=== PATIENT | female | born 1995 | race Caucasian/White ===

== ENCOUNTER 2018-02-04 11:17 | Emergency (ER) | payer OTHER ==
[~2018-02-04] VITALS: Ht 160 cm; Wt 111.4 kg
[2018-02-04 11:17] VITALS: BP 138/87
[2018-02-04] MEDS ORDERED: KETOROLAC TROMETHAMINE 10 MG TAB PO ONE (11:45)
--- NOTE | 2018-02-04 11:46 | REP ---
Clinical: Left ankle trauma . Technique: AP, lateral, bilateral oblique views. Findings: No acute fracture or dislocation. Skeletal structures and joint spaces are intact and normal. Ankle mortise appears stable. No subcutaneous emphysema or radiodense foreign body. Impression: Normal left ankle radiograph series. Electronically Signed by Benjamín Collazo MD 02/04/2018 11:38 A
[2018-02-04] MEDS ORDERED: NAPR-50 PO (12:06)
== END 2018-02-04 12:19 | disposition home or self-care (01) ==
LOC: M ED 11:17
DX: S93.402A Sprain of unspecified ligament of left ankle, initial encounter (principal); X50.9XXA Other and unspecified overexertion or strenuous movements or postures, initial encounter; Y92.018 Other place in single-family (private) house as the place of occurrence of the external cause; E66.8 Other obesity

== ENCOUNTER 2018-02-21 07:38 | Emergency (ER) | payer OTHER ==
[~2018-02-21 07:38] MED LIST: NAPR-50 PO
[2018-02-21 07:39] VITALS: BP 132/81
== END 2018-02-21 08:59 | disposition home or self-care (01) ==
LOC: M ED 07:38
DX: Z32.01 Encounter for pregnancy test, result positive (principal); O23.40 Unspecified infection of urinary tract in pregnancy, unspecified trimester; O99.340 Other mental disorders complicating pregnancy, unspecified trimester; O99.210 Obesity complicating pregnancy, unspecified trimester; O99.320 Drug use complicating pregnancy, unspecified trimester; Z79.899 Other long term (current) drug therapy; Z91.010 Allergy to peanuts; Z91.018 Allergy to other foods; Z3A.00 Weeks of gestation of pregnancy not specified

== ENCOUNTER 2018-02-28 17:23 | Emergency (ER) | payer OTHER ==
[~2018-02-28] VITALS: Ht 160 cm; Wt 109.1 kg
[2018-02-28] MEDS ORDERED: AMOX500C (17:30)
[2018-02-28] MEDS ORDERED: PRENTAB29 (17:30)
[2018-02-28 18:13] LABS: BASO % 0.2 % (0.0-1.0); EOS # 0.1 10^3/uL (0.0-0.50); EOS % 1.1 % (0.0-3.0); HEMATOCRIT 33.9 % (36.0-47.0); HEMOGLOBIN 10.6 g/dl (12.0-15.5); LYMPH # 2.2 10^3/uL (1.5-6.5); LYMPH % 21.5 % (24.0-44.0); MEAN CORPUSCULAR HGB CONC 31.3 g/dl (32.0-36.5); MEAN CORPUSCULAR VOLUME 70.3 fl (80.0-96.0); MONO # 0.6 10^3/uL (0.0-0.8); MONO % 6.2 % (0.0-5.0); NEUTROPHILS # 7.3 10^3/uL (1.8-7.7); NEUTROPHILS % 70.5 % (36.0-66.0); PLATELET COUNT, AUTOMATED 327 10^3/uL (150-450); RED BLOOD COUNT 4.82 10^6/uL (4.00-5.40); WHITE BLOOD COUNT 10.4 10^3/uL (4.0-10.0)
[2018-02-28 18:55] LABS: BLOOD UREA NITROGEN 11 MG/DL (7-18); CALCIUM LEVEL 8.5 MG/DL (8.5-10.1); CARBON DIOXIDE LEVEL 25 MEQ/L (21-32); CHLORIDE LEVEL 107 MEQ/L (98-107); GLUCOSE, FASTING 111 MG/DL (70-100); HCG, SERUM QUANTITATIVE 16468 MIU/ML; POTASSIUM SERUM 3.8 MEQ/L (3.5-5.1); SODIUM LEVEL 140 MEQ/L (136-145)
--- NOTE | 2018-02-28 21:50 | REPVR ---
EXAM: US First Trimester, Transabdominal EXAM DATE/TIME: 02/28/2018 8:55 PM CLINICAL HISTORY: 22 years old, female; Pain; complicated by abdominal or pelvic pain; Right lower quadrant; First trimester; Gestational age or lmp: 6w 2d; TECHNIQUE: Real-time transabdominal obstetrical ultrasound of the maternal pelvis and a first trimester , less than 14 weeks 0 days, with image documentation. COMPARISON: No relevant prior studies available. FINDINGS: GESTATION: Gestation: Gestational sac within the uterus with yolk sac and pole. Heart rate: heartbeat of 120 beats per minute. Placenta: Unremarkable. No subchorionic bleed. BIOMETRY: [place]-Rump length: [place] rump length is 5 mm suggesting an age of 6 weeks 2 days. The EDC based on this is 10/22/2018. MATERNAL: Uterus: The uterus measures 9.0 cm in its cephalocaudad dimension and 4.4 x 5.6 cm in its AP and lateral dimensions. Cervix: Unremarkable. Right adnexa: Right ovary measures 1.8 x 3.0 x 1.8 cm and demonstrates blood flow. Left adnexa: The left ovary measures 3.0 x 4.1 x 2.5 cm and demonstrates blood flow and a cyst/follicle measuring 18 x 18 x 20 mm. Intraperitoneal: No intraperitoneal free fluid. IMPRESSION: 1. Early single live intrauterine gestation with an estimated age of 6 weeks 2 days. The EDC is 10/22/2018. 2. Left ovarian cyst/follicle measuring 18 x 18 x 20 mm. Electronically signed by: Slick Duncan On 02/28/2018 21:49:45 PM
[2018-02-28 21:54] VITALS: BP 126/65
== END 2018-02-28 21:55 | disposition home or self-care (01) ==
LOC: M ED 17:23
DX: O26.891 Other specified pregnancy related conditions, first trimester (principal); R10.2 Pelvic and perineal pain; Z3A.01 Less than 8 weeks gestation of pregnancy; O99.341 Other mental disorders complicating pregnancy, first trimester; F31.9 Bipolar disorder, unspecified; F41.9 Anxiety disorder, unspecified; F90.9 Attention-deficit hyperactivity disorder, unspecified type; F19.10 Other psychoactive substance abuse, uncomplicated; Z87.891 Personal history of nicotine dependence; O99.321 Drug use complicating pregnancy, first trimester

== ENCOUNTER 2018-03-27 18:37 | Emergency (ER) | payer OTHER ==
[~2018-03-27] VITALS: Ht 160 cm; Wt 120.5 kg
[~2018-03-27 18:37] MED LIST changes: +AMOX500C; +PRENTAB29
[2018-03-27] MEDS ORDERED: VITATAB11 PO (18:47)
[2018-03-27 19:23] LABS: BASO % 0.3 % (0.0-1.0); EOS # 0.1 10^3/uL (0.0-0.50); EOS % 0.9 % (0.0-3.0); HEMATOCRIT 34.1 % (36.0-47.0); HEMOGLOBIN 10.6 g/dl (12.0-15.5); LYMPH # 2.4 10^3/uL (1.5-6.5); MEAN CORPUSCULAR HGB CONC 31.1 g/dl (32.0-36.5); MEAN CORPUSCULAR VOLUME 70.7 fl (80.0-96.0); MONO # 0.6 10^3/uL (0.0-0.8); MONO % 5.1 % (0.0-5.0); NEUTROPHILS # 8.7 10^3/uL (1.8-7.7); NEUTROPHILS % 73.4 % (36.0-66.0); PLATELET COUNT, AUTOMATED 325 10^3/uL (150-450); RED BLOOD COUNT 4.82 10^6/uL (4.00-5.40); WHITE BLOOD COUNT 11.8 10^3/uL (4.0-10.0)
[2018-03-27 20:08] LABS: BLOOD UREA NITROGEN 9 MG/DL (7-18); CALCIUM LEVEL 8.6 MG/DL (8.5-10.1); CARBON DIOXIDE LEVEL 26 MEQ/L (21-32); CHLORIDE LEVEL 105 MEQ/L (98-107); CREATININE FOR GFR 0.64 MG/DL (0.55-1.30); GLUCOSE, FASTING 84 MG/DL (70-100); HCG, SERUM QUANTITATIVE 68226 MIU/ML; POTASSIUM SERUM 3.7 MEQ/L (3.5-5.1); SODIUM LEVEL 138 MEQ/L (136-145)
--- NOTE | 2018-03-27 20:59 | REPVR ---
EXAM: US First Trimester, Transabdominal EXAM DATE/TIME: 03/27/2018 8:07 PM CLINICAL HISTORY: 22 years old, female; Pain; complicated by abdominal or pelvic pain; Left lower quadrant; First trimester; Gestational age or lmp: 10 w 6 d; ; Additional info: Cramping TECHNIQUE: Real-time transabdominal obstetrical ultrasound of the maternal pelvis and a first trimester , less than 14 weeks 0 days, with image documentation. COMPARISON: 1ST TRIMESTER US 02/28/2018 8:47 PM FINDINGS: GESTATION: Gestation: Single intrauterine fetus. Heart rate: heartbeat of 165 beats per minute. Amniotic fluid: Amniotic and chorionic fluid are normal for gestational age. BIOMETRY: [place]-Rump length: The [place]-rump length is 3.9 cm suggesting an age of 10 weeks 6 days. The EDC is 10/17/2018. There has been adequate interval growth since 02/28/2018. MATERNAL: Uterus: Unremarkable. Cervix: Unremarkable. Right adnexa: The the right ovary measures 2.1 x 3.4 x 2.0 cm and demonstrates blood flow. Left adnexa: The left ovary measures 2.4 x 4.6 x 2.6 cm and demonstrates a small complex cyst measuring 19 x 17 x 17 mm. There is left ovarian blood flow. Intraperitoneal: No intraperitoneal free fluid. IMPRESSION: 1. Single live intrauterine fetus with an estimated age of 10 weeks 6 days. The EDC is 10/17/2018 with adequate interval growth since 02/28/2018. 2. Small complex left ovarian cyst measuring 17 x 17 x 19 mm, probably a corpus luteum cyst. Electronically signed by: Slick Duncan On 03/27/2018 20:59:32 PM
[2018-03-27] MEDS ORDERED: PROMETHAZINE 25 MG TAB PO ONE (22:15)
[2018-03-27] MEDS ORDERED: PROM25TA12 PO (22:39)
[2018-03-27 22:51] VITALS: BP 137/70
== END 2018-03-27 22:54 | disposition home or self-care (01) ==
LOC: M ED 18:37
DX: O21.9 Vomiting of pregnancy, unspecified (principal); Z3A.10 10 weeks gestation of pregnancy; O34.81 Maternal care for other abnormalities of pelvic organs, first trimester; N83.202 Unspecified ovarian cyst, left side; O99.341 Other mental disorders complicating pregnancy, first trimester; F31.9 Bipolar disorder, unspecified; F44.81 Dissociative identity disorder; F90.9 Attention-deficit hyperactivity disorder, unspecified type; O99.321 Drug use complicating pregnancy, first trimester; F19.21 Other psychoactive substance dependence, in remission; O99.211 Obesity complicating pregnancy, first trimester; Z91.010 Allergy to peanuts; Z91.018 Allergy to other foods; O99.331 Smoking (tobacco) complicating pregnancy, first trimester; F17.210 Nicotine dependence, cigarettes, uncomplicated

== ENCOUNTER 2018-04-12 18:38 | Emergency (ER) | payer OTHER ==
[~2018-04-12] VITALS: Ht 160 cm; Wt 123.0 kg
[~2018-04-12 18:38] MED LIST changes: +PROM25TA12 PO; +VITATAB11 PO
[2018-04-12] MEDS ORDERED: NS 1,000 ML IV ONE (19:45)
[2018-04-12] MEDS ORDERED: ONDANSETRON 4MG/2ML VIAL (J2405) IV ONE (19:45)
[2018-04-12 20:22] LABS: BLOOD UREA NITROGEN 8 MG/DL (7-18); CALCIUM LEVEL 8.7 MG/DL (8.5-10.1); CARBON DIOXIDE LEVEL 26 MEQ/L (21-32); CHLORIDE LEVEL 103 MEQ/L (98-107); CREATININE FOR GFR 0.63 MG/DL (0.55-1.30); GLUCOSE, FASTING 90 MG/DL (70-100); POTASSIUM SERUM 3.6 MEQ/L (3.5-5.1); SODIUM LEVEL 138 MEQ/L (136-145)
[2018-04-12 20:36] VITALS: BP 141/80
== END 2018-04-12 21:58 | disposition home or self-care (01) ==
LOC: M ED 18:38
DX: O21.9 Vomiting of pregnancy, unspecified (principal); O99.340 Other mental disorders complicating pregnancy, unspecified trimester; Z79.899 Other long term (current) drug therapy; Z91.018 Allergy to other foods; Z91.010 Allergy to peanuts
CPT/HCPCS: 80048; 96360; 96361; 99284; J2405

== ENCOUNTER 2018-04-16 20:21 | Emergency (ER) | payer OTHER ==
[~2018-04-16] VITALS: Ht 160 cm; Wt 123.2 kg
[2018-04-16 21:26] LABS: BASO % 0.2 % (0.0-1.0); EOS # 0.1 10^3/uL (0.0-0.50); EOS % 0.5 % (0.0-3.0); HEMATOCRIT 33.2 % (36.0-47.0); HEMOGLOBIN 10.4 g/dl (12.0-15.5); LYMPH # 1.7 10^3/uL (1.5-6.5); LYMPH % 13.1 % (24.0-44.0); MEAN CORPUSCULAR HEMOGLOBIN 22.1 pg (27.0-33.0); MEAN CORPUSCULAR HGB CONC 31.3 g/dl (32.0-36.5); MEAN CORPUSCULAR VOLUME 70.5 fl (80.0-96.0); MONO # 0.7 10^3/uL (0.0-0.8); MONO % 5.5 % (0.0-5.0); NEUTROPHILS # 10.2 10^3/uL (1.8-7.7); NEUTROPHILS % 80.2 % (36.0-66.0); PLATELET COUNT, AUTOMATED 300 10^3/uL (150-450); RED BLOOD COUNT 4.71 10^6/uL (4.00-5.40); WHITE BLOOD COUNT 12.8 10^3/uL (4.0-10.0)
[2018-04-16 21:48] LABS: BLOOD UREA NITROGEN 8 MG/DL (7-18); CALCIUM LEVEL 8.4 MG/DL (8.5-10.1); CARBON DIOXIDE LEVEL 26 MEQ/L (21-32); CHLORIDE LEVEL 106 MEQ/L (98-107); CREATININE FOR GFR 0.57 MG/DL (0.55-1.30); GLUCOSE, FASTING 97 MG/DL (70-100); POTASSIUM SERUM 3.8 MEQ/L (3.5-5.1); SODIUM LEVEL 140 MEQ/L (136-145)
[2018-04-16 21:55] LABS: HCG, SERUM QUALITATIVE POSITIVE (NEGATIVE)
[2018-04-16 22:40] LABS: HCG, SERUM QUANTITATIVE 29989 MIU/ML
--- NOTE | 2018-04-17 00:08 | REPVR ---
EXAM: US First Trimester, Transabdominal EXAM DATE/TIME: 04/16/2018 10:50 PM CLINICAL HISTORY: 22 years old, female; Signs and symptoms; Lmp or gestational age (in weeks): Lmp 01/08/19; Antepartum complications; Bleeding; ; Additional info: Vaginal spotting during TECHNIQUE: Real-time transabdominal obstetrical ultrasound of the maternal pelvis and a first trimester , less than 14 weeks 0 days, with image documentation. COMPARISON: US OB 03/27/2018 7:36 PM FINDINGS: GESTATION: Gestation: Single live intrauterine gestation. Heart rate: heart rate measures 153 beats per minute. Placenta: Unremarkable. No subchorionic bleed. Placenta is anterior. No placenta previa. Amniotic fluid: Amniotic and chorionic fluid are normal for gestational age. BIOMETRY: Estimated gestational age: Estimated gestational age is 13 weeks 6 days AUA. [place]-Rump length: [place]-rump length measures 7.8 cm. Estimated due date: Estimated due date is 10/16/2018. MATERNAL: Uterus: Unremarkable. Cervix: Unremarkable. Right adnexa: Unremarkable. Left ovary measures 3.9 x 3.7 x 2.5 cm. Left adnexa: Unremarkable. Left ovary measures 4.2 x 3.8 x 2.8 cm. Intraperitoneal: No intraperitoneal free fluid. IMPRESSION: 1. Single live intrauterine gestation. 2. Estimated gestational age 13 weeks 6 days. 3. Estimated due date is 10/16/2018 AUA. Appropriate interval growth from the prior study. 4. Recommend routine followup OB ultrasound for full anatomical survey at 19-20 weeks gestational age. Electronically signed by: Deonte Da Silva On 04/17/2018 00:08:50 AM
[2018-04-17 00:20] VITALS: BP 124/67
== END 2018-04-17 00:32 | disposition home or self-care (01) ==
LOC: M ED 20:21
DX: O26.892 Other specified pregnancy related conditions, second trimester (principal); R10.2 Pelvic and perineal pain; O26.852 Spotting complicating pregnancy, second trimester; Z3A.13 13 weeks gestation of pregnancy; O99.342 Other mental disorders complicating pregnancy, second trimester; F31.9 Bipolar disorder, unspecified; F33.9 Major depressive disorder, recurrent, unspecified; F41.9 Anxiety disorder, unspecified; F44.81 Dissociative identity disorder; F50.2 Bulimia nervosa; Z91.010 Allergy to peanuts; Z91.018 Allergy to other foods; Z87.891 Personal history of nicotine dependence

== ENCOUNTER 2018-05-01 15:23 | Emergency (ER) | payer OTHER ==
[~2018-05-01] VITALS: Ht 160 cm; Wt 123.3 kg
[~2018-05-01 15:23] MED LIST changes: -NAPR-50 PO; +NAPR-837 PO
[2018-05-01] MEDS ORDERED: vitamin c PO (15:49)
[2018-05-01] MEDS ORDERED: IRON27TA2 PO (15:49)
[2018-05-01] MEDS ORDERED: UNIS25TA3 PO (15:49)
[2018-05-01 17:03] LABS: BASO % 0.2 % (0.0-1.0); EOS # 0.1 10^3/uL (0.0-0.50); EOS % 0.6 % (0.0-3.0); HEMATOCRIT 32.9 % (36.0-47.0); HEMOGLOBIN 10.5 g/dl (12.0-15.5); LYMPH % 17.5 % (24.0-44.0); MEAN CORPUSCULAR HEMOGLOBIN 21.8 pg (27.0-33.0); MEAN CORPUSCULAR HGB CONC 31.9 g/dl (32.0-36.5); MEAN CORPUSCULAR VOLUME 68.3 fl (80.0-96.0); MONO # 0.6 10^3/uL (0.0-0.8); MONO % 4.8 % (0.0-5.0); NEUTROPHILS # 8.7 10^3/uL (1.8-7.7); NEUTROPHILS % 76.5 % (36.0-66.0); PLATELET COUNT, AUTOMATED 287 10^3/uL (150-450); RED BLOOD COUNT 4.82 10^6/uL (4.00-5.40); WHITE BLOOD COUNT 11.4 10^3/uL (4.0-10.0)
[2018-05-01 17:26] LABS: ALT/SGPT 33 U/L (12-78); BILIRUBIN,DIRECT < 0.1 MG/DL (0.0-0.2); BILIRUBIN,TOTAL 0.3 MG/DL (0.2-1.0); BLOOD UREA NITROGEN 9 MG/DL (7-18); CARBON DIOXIDE LEVEL 25 MEQ/L (21-32); CHLORIDE LEVEL 104 MEQ/L (98-107); CREATININE FOR GFR 0.65 MG/DL (0.55-1.30); GLUCOSE, FASTING 79 MG/DL (70-100); LIPASE 122 U/L (73-393); POTASSIUM SERUM 3.8 MEQ/L (3.5-5.1); SODIUM LEVEL 137 MEQ/L (136-145)
--- NOTE | 2018-05-01 17:27 | REP ---
Clinical: Left lower quadrant pain Technique: Transabdominal first trimester obstetrical ultrasound Findings: Single live early intrauterine is appreciated. Biometrical measurements correspond to 16 weeks 3 days gestational age with estimated date of delivery 10/13/2018 . heart rate equals 155 beats per minute. No gross abnormalities are identified. Placenta identified anteriorly and grade zero. Cervix measures 3.3 cm in length and appears closed. Impression: Single live early intrauterine at 16 weeks 3 days gestational age. Complete anatomical assessment should be performed and 19-20 weeks. Electronically Signed by Benjamín Collazo MD 05/01/2018 05:20 P
[2018-05-01] MEDS ORDERED: PROMETHAZINE 25 MG TAB PO ONE (17:45)
[2018-05-01 17:49] VITALS: BP 122/68
--- NOTE | 2018-05-02 10:20 | ECGEPIP ---
Stationary ECG Study 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
== END 2018-05-01 18:34 | disposition home or self-care (01) ==
LOC: M ED 15:23
DX: O99.89 Other specified diseases and conditions complicating pregnancy, childbirth and the puerperium (principal); R55 Syncope and collapse; O99.012 Anemia complicating pregnancy, second trimester; Z3A.16 16 weeks gestation of pregnancy; Z79.899 Other long term (current) drug therapy; Z91.010 Allergy to peanuts; Z91.018 Allergy to other foods; Z87.891 Personal history of nicotine dependence

== ENCOUNTER 2018-05-05 20:30 | Emergency (ER) | payer OTHER ==
[~2018-05-05] VITALS: Ht 160 cm; Wt 123.2 kg
[2018-05-05 20:30] VITALS: BP 131/77
[~2018-05-05 20:30] MED LIST changes: +IRON27TA2 PO; +UNIS25TA3 PO; +vitamin c PO
[2018-05-05] MEDS ORDERED: ONDANSETRON 4MG/2ML VIAL (J2405) IV ONE (21:30)
[2018-05-05] MEDS ORDERED: NS 1,000 ML IV ONE (21:30)
[2018-05-05 22:38] LABS: BASO % 0.2 % (0.0-1.0); EOS # 0.1 10^3/uL (0.0-0.50); HEMATOCRIT 32.3 % (36.0-47.0); HEMOGLOBIN 10.1 g/dl (12.0-15.5); LYMPH # 1.9 10^3/uL (1.5-6.5); MEAN CORPUSCULAR HEMOGLOBIN 22.1 pg (27.0-33.0); MEAN CORPUSCULAR HGB CONC 31.3 g/dl (32.0-36.5); MEAN CORPUSCULAR VOLUME 70.8 fl (80.0-96.0); MONO # 0.5 10^3/uL (0.0-0.8); MONO % 5.7 % (0.0-5.0); NEUTROPHILS # 6.6 10^3/uL (1.8-7.7); NEUTROPHILS % 71.7 % (36.0-66.0); PLATELET COUNT, AUTOMATED 283 10^3/uL (150-450); RED BLOOD COUNT 4.56 10^6/uL (4.00-5.40); WHITE BLOOD COUNT 9.3 10^3/uL (4.0-10.0)
--- NOTE | 2018-05-05 23:02 | REPVR ---
EXAM: US , Limited EXAM DATE/TIME: 05/05/2018 10:11 PM CLINICAL HISTORY: 22 years old, female; Pain; complicated by abdominal or pelvic pain; Lower; Second trimester; Gestational age or lmp: 15w 5d; ; Additional info: Llq pain TECHNIQUE: Imaging protocol: Real-time ultrasound of the maternal uterus with image documentation. Exam focused on the clinical indication. Technique: Real-time sonographic evaluation of the gravid uterus and its contents was performed. COMPARISON: US OBS SINGEL GEST 05/01/2018 4:52 PM FINDINGS: There is a mcqueen fetus in transverse lie. The heart rate was measured at 152 beats per minute. A detailed anatomic survey and evaluation for dates were not performed on this examination. The placenta is anterior fundal in location. There is an adequate amount of amniotic fluid. The MAITE is 9.9 cm. The cervix is closed and measures approximately 3.6 cm in length. IMPRESSION: Single viable intrauterine gestation in transverse lie, as described above. Adequate amniotic fluid. Recommend continued clinical and ultrasound surveillance, as clinically indicated. Electronically signed by: Sergey Dale On 05/05/2018 23:02:35 PM
[2018-05-05 23:04] LABS: ALBUMIN 2.8 GM/DL (3.2-5.2); ALT/SGPT 25 U/L (12-78); BILIRUBIN,DIRECT < 0.1 MG/DL (0.0-0.2); BILIRUBIN,TOTAL 0.2 MG/DL (0.2-1.0); BLOOD UREA NITROGEN 6 MG/DL (7-18); CALCIUM LEVEL 8.6 MG/DL (8.5-10.1); CARBON DIOXIDE LEVEL 23 MEQ/L (21-32); CHLORIDE LEVEL 109 MEQ/L (98-107); CREATININE FOR GFR 0.48 MG/DL (0.55-1.30); GLUCOSE, FASTING 86 MG/DL (70-100); POTASSIUM SERUM 4.7 MEQ/L (3.5-5.1); SODIUM LEVEL 141 MEQ/L (136-145); TOTAL PROTEIN 6.8 GM/DL (6.4-8.2)
[2018-05-05] MEDS ORDERED: REGL10TA6 PO (23:09)
== END 2018-05-05 23:49 | disposition home or self-care (01) ==
LOC: M ED 20:30
DX: O26.892 Other specified pregnancy related conditions, second trimester (principal); O99.352 Diseases of the nervous system complicating pregnancy, second trimester; G56.01 Carpal tunnel syndrome, right upper limb; O21.9 Vomiting of pregnancy, unspecified; Z3A.15 15 weeks gestation of pregnancy; O99.112 Other diseases of the blood and blood-forming organs and certain disorders involving the immune mechanism complicating pregnancy, second trimester; D64.9 Anemia, unspecified; O99.342 Other mental disorders complicating pregnancy, second trimester; F31.9 Bipolar disorder, unspecified; F41.9 Anxiety disorder, unspecified; F44.81 Dissociative identity disorder; F90.9 Attention-deficit hyperactivity disorder, unspecified type; O99.322 Drug use complicating pregnancy, second trimester; F19.11 Other psychoactive substance abuse, in remission; Z87.891 Personal history of nicotine dependence; Z91.010 Allergy to peanuts; Z91.018 Allergy to other foods; Z79.899 Other long term (current) drug therapy

== ENCOUNTER 2018-05-15 14:53 | Emergency (ER) | payer OTHER ==
[~2018-05-15] VITALS: Ht 160 cm; Wt 126.4 kg
[~2018-05-15 14:53] MED LIST changes: +REGL10TA6 PO
[2018-05-15] MEDS ORDERED: COLA100C5 PO (15:04)
[2018-05-15] MEDS ORDERED: NS 1,000 ML IV ONE (15:30)
[2018-05-15 15:44] LABS: BASO % 0.2 % (0.0-1.0); EOS # 0.1 10^3/uL (0.0-0.50); EOS % 0.7 % (0.0-3.0); HEMATOCRIT 32.3 % (36.0-47.0); LYMPH # 1.6 10^3/uL (1.5-6.5); LYMPH % 17.1 % (24.0-44.0); MEAN CORPUSCULAR HEMOGLOBIN 22.3 pg (27.0-33.0); MEAN CORPUSCULAR VOLUME 72.1 fl (80.0-96.0); MONO # 0.6 10^3/uL (0.0-0.8); MONO % 5.9 % (0.0-5.0); NEUTROPHILS # 7.2 10^3/uL (1.8-7.7); NEUTROPHILS % 75.7 % (36.0-66.0); PLATELET COUNT, AUTOMATED 286 10^3/uL (150-450); RED BLOOD COUNT 4.48 10^6/uL (4.00-5.40); WHITE BLOOD COUNT 9.6 10^3/uL (4.0-10.0)
[2018-05-15 16:19] LABS: ALBUMIN 2.7 GM/DL (3.2-5.2); ALT/SGPT 33 U/L (12-78); BILIRUBIN,DIRECT < 0.1 MG/DL (0.0-0.2); BILIRUBIN,TOTAL 0.1 MG/DL (0.2-1.0); BLOOD UREA NITROGEN 8 MG/DL (7-18); CALCIUM LEVEL 8.5 MG/DL (8.5-10.1); CARBON DIOXIDE LEVEL 26 MEQ/L (21-32); CHLORIDE LEVEL 108 MEQ/L (98-107); CREATININE FOR GFR 0.57 MG/DL (0.55-1.30); GLUCOSE, FASTING 85 MG/DL (70-100); HCG, SERUM QUANTITATIVE 8084 MIU/ML; LIPASE 122 U/L (73-393); POTASSIUM SERUM 4.2 MEQ/L (3.5-5.1); SODIUM LEVEL 139 MEQ/L (136-145); TOTAL PROTEIN 6.5 GM/DL (6.4-8.2)
--- NOTE | 2018-05-15 18:04 | REP ---
Obstetric ultrasound for amniotic fluid volume assessment and cramping: The patient is . Gestational age by the first ultrasound 17 weeks 1 day with an GULSHAN of 10/22/2018. Gestational age by LMP is 18 weeks 1 day with an GULSHAN of 10/15/2018. There is a single intrauterine gestation in a vertex presentation. heart rate is 144 beats per minute. The placenta is anterior. No placenta previa is identified. Subjectively the amniotic fluid volume is normal. Amniotic fluid index is 9.6. { 8.3 - 19.5). Additional evaluation is not requested or performed at this time. Electronically Signed by Shawn Quigley MD 05/15/2018 05:55 P
[2018-05-15 19:14] VITALS: BP 122/71
--- NOTE | 2018-05-15 21:46 | ECGEPIP ---
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
== END 2018-05-15 19:50 | disposition home or self-care (01) ==
LOC: M ED 14:53
DX: O26.892 Other specified pregnancy related conditions, second trimester (principal); R10.30 Lower abdominal pain, unspecified; O21.9 Vomiting of pregnancy, unspecified; O99.012 Anemia complicating pregnancy, second trimester; O99.342 Other mental disorders complicating pregnancy, second trimester; F31.9 Bipolar disorder, unspecified; F44.81 Dissociative identity disorder; F90.9 Attention-deficit hyperactivity disorder, unspecified type; Z91.018 Allergy to other foods; Z87.891 Personal history of nicotine dependence; Z3A.18 18 weeks gestation of pregnancy

== ENCOUNTER 2018-06-03 11:52 | Emergency (ER) | payer OTHER ==
[~2018-06-03] VITALS: Ht 160 cm; Wt 124.7 kg
[~2018-06-03 11:52] MED LIST changes: +COLA100C5 PO
[2018-06-03] MEDS ORDERED: ASPI81CH33 PO (12:08)
[2018-06-03] MEDS ORDERED: METOCLOPRAMIDE INJ 10MG/2ML VIAL (J2765) IV ONE (12:30)
[2018-06-03] MEDS ORDERED: NS 1,000 ML IV ONE (12:30)
[2018-06-03 12:59] LABS: BASO % 0.2 % (0.0-1.0); EOS # 0.1 10^3/uL (0.0-0.50); EOS % 0.9 % (0.0-3.0); HEMATOCRIT 30.8 % (36.0-47.0); HEMOGLOBIN 9.8 g/dl (12.0-15.5); LYMPH # 1.6 10^3/uL (1.5-6.5); LYMPH % 15.2 % (24.0-44.0); MEAN CORPUSCULAR HEMOGLOBIN 22.4 pg (27.0-33.0); MEAN CORPUSCULAR HGB CONC 31.8 g/dl (32.0-36.5); MEAN CORPUSCULAR VOLUME 70.5 fl (80.0-96.0); MONO # 0.5 10^3/uL (0.0-0.8); NEUTROPHILS # 8.4 10^3/uL (1.8-7.7); NEUTROPHILS % 77.9 % (36.0-66.0); PLATELET COUNT, AUTOMATED 285 10^3/uL (150-450); RED BLOOD COUNT 4.37 10^6/uL (4.00-5.40); WHITE BLOOD COUNT 10.8 10^3/uL (4.0-10.0)
[2018-06-03 13:05] LABS: BLOOD UREA NITROGEN 8 MG/DL (7-18); CALCIUM LEVEL 8.6 MG/DL (8.5-10.1); CARBON DIOXIDE LEVEL 25 MEQ/L (21-32); CHLORIDE LEVEL 106 MEQ/L (98-107); CREATININE FOR GFR 0.62 MG/DL (0.55-1.30); GLUCOSE, FASTING 95 MG/DL (70-100); POTASSIUM SERUM 3.7 MEQ/L (3.5-5.1); SODIUM LEVEL 140 MEQ/L (136-145)
[2018-06-03] MEDS ORDERED: REGL10TA6 PO (14:07)
[2018-06-03 14:33] VITALS: BP 125/70
== END 2018-06-03 14:32 | disposition home or self-care (01) ==
LOC: M ED 11:52
DX: O21.9 Vomiting of pregnancy, unspecified (principal); Z3A.00 Weeks of gestation of pregnancy not specified; Z91.018 Allergy to other foods; Z91.010 Allergy to peanuts; Z79.82 Long term (current) use of aspirin; Z79.899 Other long term (current) drug therapy; Z87.891 Personal history of nicotine dependence; Z87.59 Personal history of other complications of pregnancy, childbirth and the puerperium
CPT/HCPCS: 80048; 81001; 85025; 96361; 96374; 99284; J2765

== ENCOUNTER 2018-06-06 14:34 | Outpatient (CLI) | payer OTHER ==
[~2018-06-06] VITALS: Ht 160 cm; Wt 126.7 kg
[~2018-06-06 14:34] MED LIST changes: +ASPI81CH33 PO
[2018-06-06 15:03] VITALS: BP 113/58
[2018-06-06 16:59] LABS: APPEARANCE, URINE CLEAR (CLEAR); BACTERIA, URINE AUTO NEGATIVE (NEGATIVE); BILIRUBIN, URINE AUTO NEGATIVE (NEGATIVE); BLOOD, URINE BLOOD NEGATIVE (NEGATIVE); COLOR, URINE YELLOW (YELLOW); GLUCOSE, URINE (UA) AUTO NEGATIVE (NEGATIVE); KETONE, URINE AUTO NEGATIVE (NEGATIVE); LEUKOCYTE ESTERASE, URINE AUTO NEGATIVE (NEGATIVE); MUCUS, URINE SMALL (NEGATIVE); NITRITE, URINE AUTO NEGATIVE (NEGATIVE); PROTEIN, URINE AUTO NEGATIVE (NEGATIVE); RBC, URINE AUTO 0 /HPF (0-3); SPECIFIC GRAVITY URINE AUTO 1.025 (1.002-1.035); SQUAMOUS EPITHELIAL CELL UR AU 3 /HPF (0-6); WBC, URINE AUTO 0 /HPF (0-3)
== END 2018-06-06 16:15 | disposition home or self-care (01) ==
LOC: M LDO 14:34
PROVIDERS: ATTEND Obstetrics & Gynecology
DX: O26.892 Other specified pregnancy related conditions, second trimester (principal); Z3A.21 21 weeks gestation of pregnancy; M54.5 Low back pain
CPT/HCPCS: 81001; 87086; G0378; G0463

== ENCOUNTER 2018-06-12 13:55 | Emergency (ER) | payer OTHER ==
[~2018-06-12] VITALS: Ht 160 cm; Wt 125.0 kg
[2018-06-12 13:58] VITALS: BP 132/77
[2018-06-12] MEDS ORDERED: REGL10TA6 PO (14:05)
[2018-06-12] MEDS ORDERED: NS 1,000 ML IV ONE (14:30)
[2018-06-12] MEDS ORDERED: PROMETHAZINE INJ 25 MG/ML VIAL (J2550) IV ONE (14:30)
[2018-06-12] MEDS ORDERED: METOCLOPRAMIDE INJ 10MG/2ML VIAL (J2765) IV ONE (15:00)
[2018-06-12] MEDS ORDERED: METOCLOPRAMIDE INJ 10MG/2ML VIAL (J2765) As Ordered ONE (15:09)
== END 2018-06-12 15:22 | disposition left against medical advice (07) ==
LOC: M ED 13:55
DX: O21.9 Vomiting of pregnancy, unspecified (principal); Z3A.22 22 weeks gestation of pregnancy; Z79.899 Other long term (current) drug therapy; Z79.82 Long term (current) use of aspirin; Z91.010 Allergy to peanuts; Z91.018 Allergy to other foods; O99.332 Smoking (tobacco) complicating pregnancy, second trimester; F17.210 Nicotine dependence, cigarettes, uncomplicated

== ENCOUNTER 2018-06-19 14:48 | Outpatient (CLI) | payer OTHER ==
[~2018-06-19] VITALS: Ht 160 cm; Wt 126.2 kg
[2018-06-19 15:09] VITALS: BP 108/57
[2018-06-19] MEDS ORDERED: B6 PO (15:14)
== END 2018-06-19 17:00 | disposition home or self-care (01) ==
LOC: M LDO 14:48
PROVIDERS: ATTEND Obstetrics & Gynecology
DX: O26.892 Other specified pregnancy related conditions, second trimester (principal); R10.84 Generalized abdominal pain; R10.2 Pelvic and perineal pain; Z3A.23 23 weeks gestation of pregnancy
CPT/HCPCS: G0378; G0463

== ENCOUNTER 2018-07-04 16:19 | Emergency (ER) | payer OTHER ==
[~2018-07-04] VITALS: Ht 160 cm; Wt 125.9 kg
[~2018-07-04 16:19] MED LIST changes: +B6 PO
[2018-07-04] MEDS ORDERED: METOCLOPRAMIDE INJ 10MG/2ML VIAL (J2765) IV ONE (17:00)
[2018-07-04] MEDS ORDERED: NS 500 ML IV ONE (17:00)
[2018-07-04 18:06] LABS: HEMATOCRIT 33.5 % (36.0-47.0); HEMOGLOBIN 10.6 g/dl (12.0-15.5); MEAN CORPUSCULAR HEMOGLOBIN 23.1 pg (27.0-33.0); MEAN CORPUSCULAR HGB CONC 31.6 g/dl (32.0-36.5); MEAN CORPUSCULAR VOLUME 73.1 fl (80.0-96.0); PLATELET COUNT, AUTOMATED 277 10^3/uL (150-450); RED BLOOD COUNT 4.58 10^6/uL (4.00-5.40); WHITE BLOOD COUNT 11.7 10^3/uL (4.0-10.0)
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
[2018-07-04 18:32] LABS: ALBUMIN 2.9 GM/DL (3.2-5.2); ALT/SGPT 23 U/L (12-78); BILIRUBIN,TOTAL 0.2 MG/DL (0.2-1.0); BLOOD UREA NITROGEN 7 MG/DL (7-18); CALCIUM LEVEL 8.8 MG/DL (8.5-10.1); CARBON DIOXIDE LEVEL 24 MEQ/L (21-32); CHLORIDE LEVEL 108 MEQ/L (98-107); CREATININE FOR GFR 0.47 MG/DL (0.55-1.30); GLUCOSE, FASTING 78 MG/DL (70-100); LIPASE 129 U/L (73-393); POTASSIUM SERUM 3.9 MEQ/L (3.5-5.1); SODIUM LEVEL 141 MEQ/L (136-145); TOTAL PROTEIN 6.6 GM/DL (6.4-8.2)
[2018-07-04 20:01] VITALS: BP 123/74
--- NOTE | 2018-07-04 20:24 | REP ---
Clinical: Trauma Comparison: 05/15/2018 . Findings: Examination demonstrates a single live intrauterine in cephalic presentation. motion is identified by technologist. Placenta is noted anterior and grade 1 without evidence for placenta previa or abruption. Amniotic fluid volume is normal. Cervix measures 4.5 cm in length and appears closed. No evidence for nuchal cord. Gestational age by first US 24 weeks 2 days with GULSHAN 10/22/2018 . FHR equals 147 beats per minute. Amniotic fluid index: 16.9 cm Impression: Single live intrauterine in cephalic presentation. No gross abnormalities are identified. Electronically Signed by Benjamín Collazo MD 07/04/2018 08:15 P
[2018-07-05] MEDS ORDERED: INTRTAB PO (08:47)
--- NOTE | 2018-07-06 08:03 | ED PDOC ---
Post-Departure Follow-Up ft hailey soliman faxed formal report of samantha bowden for fu Emilio Mix MD Jul 06, 2018 08:03
== END 2018-07-04 20:50 | disposition home or self-care (01) ==
LOC: EDBD 16:19 → M ED 16:19
DX: Z04.1 Encounter for examination and observation following transport accident (principal); V48.6XXA Car passenger injured in noncollision transport accident in traffic accident, initial encounter; Y92.410 Unspecified street and highway as the place of occurrence of the external cause; O99.342 Other mental disorders complicating pregnancy, second trimester; Z3A.24 24 weeks gestation of pregnancy; Z91.010 Allergy to peanuts; Z91.018 Allergy to other foods

== ENCOUNTER 2018-07-05 07:27 | Outpatient (CLI) | payer OTHER ==
[~2018-07-05] VITALS: Ht 160 cm; Wt 126.6 kg
[2018-07-05 07:44] VITALS: BP 131/54
[2018-07-05] MEDS ORDERED: INTRTAB PO (08:47)
== END 2018-07-05 09:35 | disposition home or self-care (01) ==
LOC: M LDO 07:27
PROVIDERS: ATTEND Obstetrics & Gynecology
DX: Z04.3 Encounter for examination and observation following other accident (principal); O26.892 Other specified pregnancy related conditions, second trimester; R10.13 Epigastric pain; Z3A.25 25 weeks gestation of pregnancy; V89.2XXA Person injured in unspecified motor-vehicle accident, traffic, initial encounter; Y99.8 Other external cause status
CPT/HCPCS: G0378; G0463

== ENCOUNTER 2018-08-16 22:30 | Outpatient (CLI) | payer OTHER ==
[~2018-08-16] VITALS: Ht 160 cm; Wt 129.2 kg
[~2018-08-16 22:30] MED LIST changes: +INTRTAB PO
[2018-08-16 22:58] VITALS: BP 109/57
[2018-08-16] MEDS ORDERED: IRON65TA2 PO (23:10)
[2018-08-16] MEDS ORDERED: ECOT81TA5 PO (23:10)
[2018-08-16] MEDS ORDERED: UNIS25TA3 PO (23:11)
[2018-08-16] MEDS ORDERED: LR 1,000 ML IV ONE (23:45)
== END 2018-08-17 02:40 | disposition home or self-care (01) ==
LOC: M LDO 22:30
PROVIDERS: ATTEND Obstetrics & Gynecology
DX: O26.893 Other specified pregnancy related conditions, third trimester (principal); R10.30 Lower abdominal pain, unspecified; E86.0 Dehydration; Z3A.31 31 weeks gestation of pregnancy
CPT/HCPCS: 59025; G0378; G0463

== ENCOUNTER 2018-09-12 20:21 | Outpatient (CLI) | payer OTHER ==
[~2018-09-12] VITALS: Ht 160 cm; Wt 132.4 kg
[~2018-09-12 20:21] MED LIST changes: +ECOT81TA5 PO; +IRON65TA2 PO
[2018-09-12 20:45] VITALS: BP 119/58
== END 2018-09-12 22:16 | disposition home or self-care (01) ==
LOC: M LDO 20:21
PROVIDERS: ATTEND Obstetrics & Gynecology
DX: O99.213 Obesity complicating pregnancy, third trimester (principal); E66.01 Morbid (severe) obesity due to excess calories; Z3A.35 35 weeks gestation of pregnancy
CPT/HCPCS: 59025; G0378; G0463

== ENCOUNTER 2018-09-17 19:30 | Inpatient (IN) | payer OTHER ==
[~2018-09-17] VITALS: Ht 160 cm; Wt 129.6 kg
[2018-09-17] MEDS ORDERED: PENICILLIN G POTASSIUM IV 5 MU in D5W MINI-BAG PLUS 100 ML IV STA (20:43)
[2018-09-17 21:14] LABS: HEMATOCRIT 37.1 % (36.0-47.0); HEMOGLOBIN 11.6 g/dl (12.0-15.5); MEAN CORPUSCULAR HEMOGLOBIN 22.7 pg (27.0-33.0); MEAN CORPUSCULAR HGB CONC 31.3 g/dl (32.0-36.5); MEAN CORPUSCULAR VOLUME 72.6 fl (80.0-96.0); PLATELET COUNT, AUTOMATED 285 10^3/uL (150-450); RED BLOOD COUNT 5.11 10^6/uL (4.00-5.40); WHITE BLOOD COUNT 15.6 10^3/uL (4.0-10.0)
[2018-09-17 21:55] LABS: AMPHETAMINES URINE REFLEX NEGATIVE (NEGATIVE); BARBITURATES URINE REFLEX NEGATIVE (NEGATIVE); BENZODIAZEPINES URINE REFLEX NEGATIVE (NEGATIVE); CANNABINOIDS URINE REFLEX NEGATIVE (NEGATIVE); COCAINE METABOLITE URINE REFLE NEGATIVE (NEGATIVE); METHADONE URINE REFLEX NEGATIVE (NEGATIVE); OPIATES URINE REFLEX NEGATIVE (NEGATIVE); PHENCYCLIDINE URINE REFLEX NEGATIVE (NEGATIVE)
--- NOTE | 2018-09-17 22:34 | HPE ---
DATE OF ADMISSION: 09/17/2018 A 22-year-old 2, para 0-0-1-0 female at 36-0/7 weeks gestation by last menstrual period (LMP) plus first trimester ultrasound, presents with a gush of fluid per vagina at 3:00 p.m. on the day of admission. She continued to leak fluid throughout the afternoon. Her contractions increased in intensity. She had good movement. COURSE: The patient's care was at [facility], first trimester blood pressure was 118/76. She had no problems. MEDICAL HISTORY: 1. History of gonorrhea in 2016. 2. History of chlamydia in 2017. 3. She has a history of self-mutilation and suicide attempts times two. SURGICAL HISTORY: None. ALLERGIES: No known drug allergies. SOCIAL HISTORY: The patient has a history of suicide attempts times two. Father of the baby is supportive. She had a history of cigarette smoking, history of drug use in the past. FAMILY HISTORY: Noncontributory. PHYSICAL EXAMINATION: Blood pressure is 133/78, pulse 84. She appears mildly uncomfortable. Head and neck exam is normal. Lungs: Clear. Heart: Regular rate and rhythm. Abdomen: Nontender, gravid. heart tones: Category 1. Sterile vaginal exam: 1 cm, 50%, -2 posterior soft vertex, grossly ruptured, clear fluid. Nitrazine positive. Contractions irregular. LABS: Blood type is A positive, rubella immune, GBS unknown. ASSESSMENT: A 22-year-old 1 at 36-0/7 weeks gestation with premature rupture of membranes. PLAN: Plan is to admit to labor and delivery. She appears to be going into labor. If this does not ensue, will start Pitocin. Will plan Group B Streptococcus (GBS) prophylaxis for GBS unknown status.
[2018-09-18] VITALS (20 sets, daily range): BP systolic 82–140; BP diastolic 47–87
[2018-09-18] MEDS: PENICILLIN G POTASSIUM IV 2.5 MU in APPROPRIATE DILUENT 1 EA IV SCH ×5 (00:46→17:53)
[2018-09-18] MEDS: miSOPROStol 50 MCG 1/2 TAB (S0191) SL SCH ×3 (00:46→08:15)
[2018-09-18] MEDS ORDERED: OXYTOCIN DRIP 30 UNITS in APPROPRIATE DILUENT 1 EA IV SCH ×2 (08:00→23:05)
[2018-09-18 08:15] LABS: HEMATOCRIT 37.8 % (36.0-47.0); HEMOGLOBIN 11.9 g/dl (12.0-15.5); MEAN CORPUSCULAR HEMOGLOBIN 23.4 pg (27.0-33.0); MEAN CORPUSCULAR HGB CONC 31.5 g/dl (32.0-36.5); MEAN CORPUSCULAR VOLUME 74.3 fl (80.0-96.0); PLATELET COUNT, AUTOMATED 263 10^3/uL (150-450); RED BLOOD COUNT 5.09 10^6/uL (4.00-5.40); WHITE BLOOD COUNT 15.6 10^3/uL (4.0-10.0)
[2018-09-18] MEDS: LR 1,000 ML IV SCH ×2 (09:55→17:53)
--- NOTE | 2018-09-18 19:34 | IPN ---
DATE: 09/18/2018 This lady is a 22-year-old 2, para 0 who was admitted at 36 and zero weeks of gestation with confirmed spontaneous rupture of membranes. Group B Streptococcus (GBS) status unknown. She was john when she came in and she had a category 1 strip. However, her contractions began to peter out and then she was given to two lots of misoprostol. This did nothing for her. At the initial admission, she was 1 cm, 50% effaced, clear amniotic fluid. Her risk factors are her body mass index (BMI) is 50. She has a history of self-harm. She had a past history of gonorrhea, past history of Chlamydia, and she has had attempted suicides times two. She is a smoker and has history of drug abuse in the past. Presently, she has a category 1 strip. She is not john. She has an elevated white count. Complete blood count (CBC) is normal. Vital signs are not available at the present time. Our plan of management with this patient is to have her eat and reassess her in one hour's time and if the contractions do not case picker, we will start Pitocin. She is also due for a CBC in regards to her elevated white count. We discussed the plan of care with the patient and her . They both expressed understanding of the plan of care.
[2018-09-18] MEDS ORDERED: AZITHROMYCIN INJ 500 MG, VIAL MATE ADAPTER 1 EACH in D5W 250 ML IV ONE (21:30)
[2018-09-18] MEDS ORDERED: BICITRA 30ML SOLN UDC PO ONE (21:30)
[2018-09-18] MEDS ORDERED: BUPIVACAINE/DEXTROSE 0.75% 2 ML AMP As Ordered ONE (21:54)
[2018-09-18] MEDS ORDERED: MORPHINE PRES-FREE INJ 10 MG/10 ML VIAL (J2274) As Ordered ONE (21:54)
[2018-09-18] MEDS ORDERED: ONDANSETRON 4MG/2ML VIAL (J2405) As Ordered ONE (21:54)
[2018-09-18] MEDS ORDERED: OXYTOCIN INJ 10 UNITS/ML VIAL (J2590) As Ordered ONE (21:54)
[2018-09-18] MEDS ORDERED: KETOROLAC 60 MG/2 ML VIAL (J1885) As Ordered ONE (21:54)
[2018-09-18] MEDS ORDERED: ePHEDrine SULFATE 25 MG/5 ML(5MG/ML) SYRINGE As Ordered ONE (22:15)
[2018-09-18] MEDS ORDERED: RHOGAM 300 MCG (1500 IU) INJ (J2790) IM SCH (23:15)
[2018-09-18] MEDS ORDERED: PERCOCET 5MG/325MG TAB PO PRN (23:15)
[2018-09-18] MEDS ORDERED: MEASLES,MUMPS,RUBELLA VACCINE INJ (MMR-II) (90707) SC SCH (23:15)
[2018-09-18] MEDS ORDERED: MOM 30ML SUSPENSION UDC PO PRN (23:15)
[2018-09-18] MEDS ORDERED: ONDANSETRON 4MG/2ML VIAL (J2405) IV PRN (23:30)
[2018-09-18] MEDS ORDERED: KETOROLAC 30 MG/ML VIAL (J1885) IV PRN (23:30)
[2018-09-18] MEDS ORDERED: NALBUPHINE HCL 10 MG/ML AMP (J2300) IV PRN (23:30)
[2018-09-18] MEDS ORDERED: diphenhydrAMINE INJ 50MG/ML VIAL (J1200) IV PRN (23:30)
[2018-09-18] MEDS ORDERED: METOCLOPRAMIDE INJ 10MG/2ML VIAL (J2765) IV PRN (23:30)
[2018-09-18] MEDS ORDERED: fentaNYL 100 MCG/2 ML INJECTION (J3010) IV PRN (23:30)
[2018-09-18] MEDS ORDERED: LR 1,000 ML IV SCH (23:30)
[2018-09-19] VITALS (9 sets, daily range): BP systolic 91–143; BP diastolic 53–70
[2018-09-19 00:55] LABS: CORD GAS PCO2 V 51.2 mmHg; CORD GAS PH V 7.333 UNITS; CORD GAS PO2 V 31.7 mmHg; CORD GAS TCO2 V 28.1 MEQ/L
[2018-09-19 00:56] LABS: CORD GAS HCO3 V 26.6 MEQ/L; CORD GAS O2 SAT V 74.7 %; CORD GAS PCO2 A 58.5 mmHg; CORD GAS PH A 7.266 UNITS; CORD GAS PO2 A 22.4 mmHg; CORD GAS TCO2 A 27.8 MEQ/L
[2018-09-19 00:57] LABS: CORD GAS ABE A -1.9; CORD GAS SBC A 21.8 MEQ/L
[2018-09-19 00:58] LABS: CORD GAS O2 SAT A 45.1 %
[2018-09-19] MEDS: IBUPROFEN 800 MG TAB PO SCH ×3 (06:04→21:23)
[2018-09-19 08:06] LABS: HEMATOCRIT 31.9 % (36.0-47.0); HEMOGLOBIN 10.1 g/dl (12.0-15.5); MEAN CORPUSCULAR HEMOGLOBIN 23.4 pg (27.0-33.0); MEAN CORPUSCULAR HGB CONC 31.7 g/dl (32.0-36.5); PLATELET COUNT, AUTOMATED 261 10^3/uL (150-450); RED BLOOD COUNT 4.31 10^6/uL (4.00-5.40); WHITE BLOOD COUNT 13.3 10^3/uL (4.0-10.0)
[2018-09-19] MEDS: PRENATAL VITAMINS CHEWABLE TABLET PO SCH (10:52)
[2018-09-19] MEDS: DOCUSATE SODIUM 100 MG CAP PO SCH ×2 (10:52→21:22)
[2018-09-19] MEDS ORDERED: SLF 3 ML SYR IV PRN (17:15)
--- NOTE | 2018-09-19 20:18 | IPN ---
DATE: 09/19/2018 This lady is a 22-year-old 2, now para 1 admitted with spontaneous rupture of membranes at 36 weeks of gestation. She had a primary section because of fail of induction of labor, delivered a female 5 pounds 7 ounces, score of 8, 6 and 8. Arterial pH 7.26, base excess -1.19, venous pH 7.33, base excess zero. On her first day, she is mobilizing well. She has been down to the NICU to see her baby. Abdomen: Soft. Uterus is two below. Lochia is moderate. Incision is clean and dry. She is voiding and passing gas. Her hemoglobin day one is 10.1, hematocrit 31.9 and platelets are 261. Her vital signs this morning her blood pressure is 124/66, respirations are 17, pulse is 90, temperature 98.9. Plan of care is to probably discharge in 2 days with medications at home. 2-week incision check and 6-week check.
[2018-09-19] MEDS ORDERED: NICOTINE 14 MG/24 HR TRANSDERMAL TD ONE (21:08)
[2018-09-19] MEDS: SLF 3 ML SYR IV SCH (22:00)
[2018-09-20 02:16] VITALS: BP 126/73
[2018-09-20] MEDS: SLF 3 ML SYR IV SCH ×2 (06:00→14:00)
[2018-09-20 06:16] VITALS: BP 115/64
[2018-09-20] MEDS: IBUPROFEN 800 MG TAB PO SCH ×3 (06:31→21:31)
[2018-09-20] MEDS: PRENATAL VITAMINS CHEWABLE TABLET PO SCH (08:09)
[2018-09-20] MEDS: DOCUSATE SODIUM 100 MG CAP PO SCH ×2 (08:09→21:31)
--- NOTE | 2018-09-20 13:51 | RO ---
DATE OF PROCEDURE: 09/18/2018 Jazmin is a 22-year-old female who was admitted at 36 weeks gestation with spontaneous rupture of membranes. She underwent Cytotec followed by Pitocin induction. She was up to 20 mm of Pitocin with no progress over a 38-hour time frame. Upon evaluation she was found to have a floating vertex. At this point she was counseled extensively and she decided to proceed with delivery via primary section. PREOPERATIVE DIAGNOSES: 1. Intrauterine at 36 weeks gestation with prolonged rupture of membranes greater than 38 hours. 2. Failed induction. 3. Floating vertex. POSTOPERATIVE DIAGNOSES: 1. Intrauterine at 36 weeks gestation with prolonged rupture of membranes greater than 38 hours. 2. Failed induction. 3. Floating vertex. PROCEDURE: Primary low transverse section via Pfannenstiel incision. SURGEON: David Galvan DO [employer] CONSULTANT: Jazmin Zavala CNM ANESTHESIA: Spinal. ESTIMATED BLOOD LOSS: 500 mL. SPECIMEN SENT TO LAB: Placenta. FINDINGS: Live female in occiput transverse position. scores 8, 6 and 8. weight 5 pounds 7 ounces. Normal-appearing tubes and ovaries. PROCEDURE: After obtaining informed consent, the patient was taken to the operating room where spinal anesthetic was found to be adequate. She was then draped and prepped in the usual sterile fashion in the supine position. A Pfannenstiel incision was then made. With the help of my computer assistant Jazmin Zavala, the incision was carried down to the fascia. Fascia was incised in midline fashion and carried through laterally. Superior aspect of the fascia was then grasped with Prabhjot clamp, tented off and dissected off the rectus muscles sharply. The inferior aspect was dissected off in a similar fashion. Rectus muscles in a midline fashion. Perineum identified. Perineal cavity entered bluntly. Superior and inferior dissection of the peritoneum was then done with good visualization of the bladder. At this point, a Mobius skin retractor was placed. A low-transverse uterine incision was made. Infant was delivered in an atraumatic fashion. Nose and mouth bulb suctioned. Cord doubly clipped and cut and infant was handed over to the awaiting warmer. Cord blood and cord gas was sent. Placenta removed manually. Uterus cleared of all clot and debris. The uterine incision was then repaired in two separate layers of #0 Vicryl sutures. All superficial bleeders coagulated. Fascia closed in two separate segments using #2-0 Vicryl sutures and the skin was reapproximated in a subcuticular fashion using #3-0 Vicryl on a Ankur. Steri-Strips placed. The patient tolerated procedure well. She was then transferred to the recovery room in stable condition.
[2018-09-20 18:00] VITALS: BP 134/69
[2018-09-20] MEDS: PERCOCET 5MG/325MG TAB PO PRN (18:53)
[2018-09-20] MEDS ORDERED: diphenhydrAMINE 50 MG CAP PO PRN (22:15)
[2018-09-21] MEDS: PERCOCET 5MG/325MG TAB PO PRN (02:05)
[2018-09-21 05:35] VITALS: BP 123/71
[2018-09-21] MEDS: IBUPROFEN 800 MG TAB PO SCH (06:12)
[2018-09-21] MEDS ORDERED: IBUP80TA PO (08:46)
[2018-09-21] MEDS: PRENATAL VITAMINS CHEWABLE TABLET PO SCH (09:58)
[2018-09-21] MEDS: DOCUSATE SODIUM 100 MG CAP PO SCH (09:58)
--- NOTE | 2018-09-23 19:06 | DSES ---
DATE OF ADMISSION: 09/17/2018 DATE OF DISCHARGE: 09/21/2018 This lady is a 4 now para 1 who was admitted with spontaneous rupture of membranes at 36 weeks of gestation, had a primary section for failure of induction of labor, failure to progress of a live female , 5 pounds 7 ounces, scores of 6 and 8 at 1 and 5 minutes respectively. Arterial pH 7.26, base excess -1.9, venous pH 7.33, base excess was 0. She has a past history of gonorrhea and chlamydia, also suicidal attempts and a BMI over 50. On discharge her blood pressure is 123/71, respirations 18, pulse 86, temperature 97.6. Her admitting hemoglobin was 11.6, hematocrit 37.0 and platelets were 285. Discharge hemoglobin was 10.1, hematocrit 31.9 and platelets were 15.8. We discussed phlebitis, cystitis, mastitis, endometritis, cellulitis, diet, exercise, pain management, perineal, breast and wound care. Rest of the examination is unremarkable. She is normocephalic, atraumatic. Neck: Full range of motion. Pupils equally and reactive to light. Distal pulses are symmetric. No evidence of DVT, PE or superficial phlebitis. Chest is clear bilaterally to bases. No wheezes or rhonchi. No CVA tenderness. Abdomen soft. Uterus two below. Lochia is moderate. Four quadrant bowel sounds are noted. Incision is clean and dry. She has no rashes, lesions or pruritus. No arthralgia, myalgia. No complaint of joint pain, cough, wheeze, shortness of breath or dyspnea on exertion. No nausea, vomiting, diarrhea or constipation. No incontinency, urgency or frequency. Patient requested no narcotics as she is previously addicted and therefore she was dispensed with ibuprofen and acetaminophen as well as lanolin and Dibucaine. She has a 2-week incision check and a 6-week check at [facility]. All questions were answered. The patient will be a possible boarder as the baby's in the NICU.
== END 2018-09-21 10:15 | disposition home or self-care (01) | DRG 773 ==
LOC: M LDO 19:30 → M LDI 20:32 → M OBS 09-19 00:41
PROVIDERS: ADMIT Specialist; ATTEND Obstetrics & Gynecology
PROC: 10D00Z1 Extraction of Products of Conception, Low, Open Approach (ICD-10-PCS; principal; 2018-09-19)
DX: O42.113 Preterm premature rupture of membranes, onset of labor more than 24 hours following rupture, third trimester (principal); Z3A.36 36 weeks gestation of pregnancy; Z37.0 Single live birth; O99.824 Streptococcus B carrier state complicating childbirth; O32.4XX0 Maternal care for high head at term, not applicable or unspecified; O99.334 Smoking (tobacco) complicating childbirth; F17.210 Nicotine dependence, cigarettes, uncomplicated

== ENCOUNTER 2018-10-11 08:43 | Emergency (ER) | payer OTHER ==
[~2018-10-11] VITALS: Ht 160 cm; Wt 121.8 kg
[~2018-10-11 08:43] MED LIST changes: +IBUP80TA PO
[2018-10-11 09:00] VITALS: BP 137/63
[2018-10-11] MEDS ORDERED: ONDANSETRON 4MG/2ML VIAL (J2405) IV ONE (09:15)
--- NOTE | 2018-10-11 09:50 | REP ---
Chest x-ray: Two views. History: Shortness of breath. Findings: The lungs are symmetrically aerated and clear. Pleural angles are sharp. Heart size is normal. Pulmonary vasculature is not increased. No infiltrate is seen. No bony abnormality. Impression: Negative chest x-ray. Electronically Signed by Sander Daley MD 10/11/2018 09:41 A
[2018-10-11] MEDS ORDERED: ONDANSETRON 4 MG ORAL DISINTEGRATING TAB (Q0162 PER 1MG) PO ONE (10:00)
[2018-10-11 10:04] LABS: BASO % 0.2 % (0.0-1.0); EOS # 0.2 10^3/uL (0.0-0.5); EOS % 1.7 % (0.0-3.0); HEMATOCRIT 38.2 % (36.0-47.0); HEMOGLOBIN 11.8 g/dl (12.0-15.5); LYMPH # 1.7 10^3/uL (1.5-5.0); LYMPH % 13.6 % (24.0-44.0); MEAN CORPUSCULAR HEMOGLOBIN 22.8 pg (27.0-33.0); MEAN CORPUSCULAR HGB CONC 30.9 g/dl (32.0-36.5); MEAN CORPUSCULAR VOLUME 73.9 fl (80.0-96.0); MONO # 0.6 10^3/uL (0.0-0.8); MONO % 5.3 % (0.0-5.0); NEUTROPHILS # 9.5 10^3/uL (1.5-8.5); NEUTROPHILS % 78.8 % (36.0-66.0); PLATELET COUNT, AUTOMATED 329 10^3/uL (150-450); RED BLOOD COUNT 5.17 10^6/uL (4.00-5.40); WHITE BLOOD COUNT 12.1 10^3/uL (4.0-10.0)
[2018-10-11 10:33] LABS: ERYTHROCYTE SEDIMENTATION RATE 41 mm/hr (0-20)
[2018-10-11 10:37] LABS: ALBUMIN 3.2 GM/DL (3.2-5.2); ALT/SGPT 43 U/L (12-78); BILIRUBIN,DIRECT 0.1 MG/DL (0.0-0.2); BILIRUBIN,TOTAL 0.2 MG/DL (0.2-1.0); BLOOD UREA NITROGEN 20 MG/DL (7-18); C REACTIVE PROTEIN QUANTITATIV 2.09 MG/DL (0.00-0.30); CALCIUM LEVEL 9.3 MG/DL (8.5-10.1); CARBON DIOXIDE LEVEL 25 MEQ/L (21-32); CHLORIDE LEVEL 107 MEQ/L (98-107); CREATININE FOR GFR 0.79 MG/DL (0.55-1.30); GLUCOSE, FASTING 95 MG/DL (70-100); LIPASE 201 U/L (73-393); POTASSIUM SERUM 4.3 MEQ/L (3.5-5.1); SODIUM LEVEL 141 MEQ/L (136-145); TOTAL PROTEIN 7.2 GM/DL (6.4-8.2)
[2018-10-11] MEDS ORDERED: ISOVUE-370 76% 100ML VIAL (Q9967) As Ordered ONE (11:25)
--- NOTE | 2018-10-11 19:22 | ECGEPIP ---
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
== END 2018-10-11 13:04 | disposition left against medical advice (07) ==
LOC: M ED 08:43 → EDBD 08:43 → M ED 13:04
DX: G89.18 Other acute postprocedural pain (principal); M54.6 Pain in thoracic spine; R11.0 Nausea; Z86.59 Personal history of other mental and behavioral disorders; F17.210 Nicotine dependence, cigarettes, uncomplicated; Z91.010 Allergy to peanuts; Z91.018 Allergy to other foods
CPT/HCPCS: 36415; 71046; 80048; 80076; 83690; 85025; 85379; 85652; 86140; 93005; 99284; Q0162

== ENCOUNTER 2018-10-24 07:09 | Emergency (ER) | payer OTHER ==
[~2018-10-24] VITALS: Ht 160 cm; Wt 121.8 kg
[2018-10-24] MEDS ORDERED: NON-325T5 PO (07:21)
[2018-10-24 08:31] LABS: BASO % 0.2 % (0.0-1.0); EOS # 0.2 10^3/uL (0.0-0.5); EOS % 1.5 % (0.0-3.0); HEMATOCRIT 37.3 % (36.0-47.0); HEMOGLOBIN 11.4 g/dl (12.0-15.5); LYMPH # 2.5 10^3/uL (1.5-5.0); LYMPH % 19.7 % (24.0-44.0); MEAN CORPUSCULAR HEMOGLOBIN 22.2 pg (27.0-33.0); MEAN CORPUSCULAR HGB CONC 30.6 g/dl (32.0-36.5); MEAN CORPUSCULAR VOLUME 72.7 fl (80.0-96.0); MONO # 0.6 10^3/uL (0.0-0.8); MONO % 4.4 % (0.0-5.0); NEUTROPHILS # 9.5 10^3/uL (1.5-8.5); NEUTROPHILS % 73.7 % (36.0-66.0); PLATELET COUNT, AUTOMATED 382 10^3/uL (150-450); RED BLOOD COUNT 5.13 10^6/uL (4.00-5.40); WHITE BLOOD COUNT 12.9 10^3/uL (4.0-10.0)
[2018-10-24 09:01] LABS: ALBUMIN 3.2 GM/DL (3.2-5.2); ALT/SGPT 37 U/L (12-78); BILIRUBIN,TOTAL 0.2 MG/DL (0.2-1.0); BLOOD UREA NITROGEN 23 MG/DL (7-18); CALCIUM LEVEL 8.7 MG/DL (8.5-10.1); CARBON DIOXIDE LEVEL 24 MEQ/L (21-32); CHLORIDE LEVEL 105 MEQ/L (98-107); CREATININE FOR GFR 0.79 MG/DL (0.55-1.30); GLOMERULAR FILTRATION RATE > 60.0 (>60); GLUCOSE, FASTING 91 MG/DL (70-100); POTASSIUM SERUM 4.2 MEQ/L (3.5-5.1); SODIUM LEVEL 138 MEQ/L (136-145); TOTAL PROTEIN 7.8 GM/DL (6.4-8.2)
[2018-10-24] MEDS ORDERED: IBUPROFEN 600 MG TAB PO ONE (09:15)
--- NOTE | 2018-10-24 09:37 | REP ---
PELVIC ULTRASOUND: Real-time sonographic evaluation of the pelvis performed utilizing transabdominal and endovaginal technique. The bladder is empty. The uterus measures 10.2 x 5.4 x 4.6 cm. Endometrial thickness is 10 mm with mild heterogeneity. There is no endometrial fluid collection. Right ovary measures 2.6 x 1.7 x 1.7 cm and left ovary 4.9 x 4.1 x 5.3 cm. Simple cyst in the left ovary measures 4.5 x 3.4 x 3.8 cm. There is no torsion bilaterally, RI right ovary 0.5 and left ovary 0.40. There is no free fluid. IMPRESSION: Heterogeneous endometrium measures 10 mm with no endometrial fluid collection. Simple cyst left ovary 4.5 cm without torsion or free fluid. Electronically Signed by Shawn Correa MD 10/24/2018 05:34 P
[2018-10-24 11:00] VITALS: BP 123/76
--- NOTE | 2018-10-24 11:25 | REP ---
CT LUMBAR SPINE WITHOUT CONTRAST: CT lumbar spine performed without IV contrast. Sagittal and coronal reconstruction images are performed. There is no compression fracture. There is slight retrolisthesis of L4 on L5 of about 2 mm, and similarly of L5 on S1 of about 2 mm. Otherwise there is normal lumbar lordosis. No significant disc space narrowing is seen. I do not see a significant disc herniation. There is no evidence of spinal stenosis or neural foraminal narrowing. IMPRESSION: No fracture. Slight retrolisthesis, 2 mm, of L4 on L5 and L5 on S1. No large disc herniation. No spinal stenosis or neural foraminal narrowing. Electronically Signed by Shawn Correa MD 10/24/2018 05:36 P
[2018-10-24 11:30] LABS: C REACTIVE PROTEIN QUANTITATIV 4.39 MG/DL (0.00-0.30)
[2018-10-24 13:39] LABS: ERYTHROCYTE SEDIMENTATION RATE 68 mm/hr (0-20)
--- NOTE | 2018-10-25 12:43 | ED PDOC ---
Post-Departure Follow-Up ft hailey faxed formal report of ct ls spine and pelvic us for fu Emilio Mix MD Oct 25, 2018 12:43
== END 2018-10-24 11:00 | disposition home or self-care (01) ==
LOC: M ED 07:09
DX: N93.8 Other specified abnormal uterine and vaginal bleeding (principal); N83.202 Unspecified ovarian cyst, left side; Z91.010 Allergy to peanuts; Z91.018 Allergy to other foods

== ENCOUNTER 2019-01-07 10:22 | Emergency (ER) | payer OTHER ==
[~2019-01-07] VITALS: Ht 160 cm; Wt 118.6 kg
[~2019-01-07 10:22] MED LIST changes: +NON-325T5 PO
[2019-01-07 12:27] LABS: APPEARANCE, URINE HAZY (CLEAR); BACTERIA, URINE AUTO NEGATIVE (NEGATIVE); BILIRUBIN, URINE AUTO NEGATIVE (NEGATIVE); BLOOD, URINE BLOOD NEGATIVE (NEGATIVE); COLOR, URINE YELLOW (YELLOW); GLUCOSE, URINE (UA) AUTO NEGATIVE (NEGATIVE); KETONE, URINE AUTO NEGATIVE (NEGATIVE); LEUKOCYTE ESTERASE, URINE AUTO NEGATIVE (NEGATIVE); MUCUS, URINE SMALL (NEGATIVE); NITRITE, URINE AUTO NEGATIVE (NEGATIVE); PROTEIN, URINE AUTO NEGATIVE (NEGATIVE); RBC, URINE AUTO 3 /HPF (0-3); SPECIFIC GRAVITY URINE AUTO 1.026 (1.002-1.035); SQUAMOUS EPITHELIAL CELL UR AU 4 /HPF (0-6); UROBILINOGEN, URINE AUTO 0.2 mg/dL (0.0-2.0); WBC, URINE AUTO 2 /HPF (0-3)
[2019-01-07 12:29] LABS: BASO % 0.3 % (0.0-1.0); EOS # 0.1 10^3/uL (0.0-0.5); EOS % 1.4 % (0.0-3.0); HEMATOCRIT 36.8 % (36.0-47.0); LYMPH # 1.8 10^3/uL (1.5-5.0); LYMPH % 23.7 % (24.0-44.0); MEAN CORPUSCULAR HEMOGLOBIN 22.4 pg (27.0-33.0); MEAN CORPUSCULAR HGB CONC 29.9 g/dl (32.0-36.5); MEAN CORPUSCULAR VOLUME 75.1 fl (80.0-96.0); MONO # 0.5 10^3/uL (0.0-0.8); NEUTROPHILS # 5.2 10^3/uL (1.5-8.5); NEUTROPHILS % 68.2 % (36.0-66.0); PLATELET COUNT, AUTOMATED 358 10^3/uL (150-450); WHITE BLOOD COUNT 7.6 10^3/uL (4.0-10.0)
[2019-01-07 12:40] LABS: INFLUENZA A AMPLIFICATION NEGATIVE (NEGATIVE); INFLUENZA B AMPLIFICATION NEGATIVE (NEGATIVE)
[2019-01-07 12:48] LABS: ALBUMIN 3.2 GM/DL (3.2-5.2); ALT/SGPT 111 U/L (12-78); BILIRUBIN,DIRECT < 0.1 MG/DL (0.0-0.2); BILIRUBIN,TOTAL 0.2 MG/DL (0.2-1.0); BLOOD UREA NITROGEN 16 MG/DL (7-18); CALCIUM LEVEL 8.9 MG/DL (8.5-10.1); CARBON DIOXIDE LEVEL 26 MEQ/L (21-32); CHLORIDE LEVEL 108 MEQ/L (98-107); CREATININE FOR GFR 0.69 MG/DL (0.55-1.30); GLOMERULAR FILTRATION RATE > 60.0 (>60); GLUCOSE, FASTING 98 MG/DL (70-100); LIPASE 121 U/L (73-393); POTASSIUM SERUM 4.6 MEQ/L (3.5-5.1); SODIUM LEVEL 141 MEQ/L (136-145); TOTAL PROTEIN 7.5 GM/DL (6.4-8.2)
[2019-01-07] MEDS ORDERED: NAPR-837 PO (12:54)
[2019-01-07 13:17] VITALS: BP 129/74
== END 2019-01-07 13:18 | disposition home or self-care (01) ==
LOC: M ED 10:22
DX: R11.2 Nausea with vomiting, unspecified (principal); R10.9 Unspecified abdominal pain; F17.210 Nicotine dependence, cigarettes, uncomplicated